=== PATIENT | female | born 1990 | race Caucasian/White ===

== ENCOUNTER 2016-12-09 18:04 | Emergency (ER) | payer MEDICARE, MEDICAID ==
[~2016-12-09] VITALS: Ht 154.9 cm; Wt 89.8 kg
[~2016-12-09 18:04] MED LIST: AMBIEN10 M1 PO; PAXIL20 M1 PO; XANAX1 M1 PO
[2016-12-09 18:14] VITALS: BP 148/92
--- NOTE | 2016-12-09 18:43 | NUR ---
Patient to bed 03.
--- NOTE | 2016-12-09 18:54 | NUR ---
PT PRESENTS TO ER FOR EVALUATION OF ABDOMINAL CRAMPING X2 DAYS. PT STATES SHE IS 7 WEEKS ;PT STATES PAIN RADIATES TO LOWER BACK;DENIES SPOTTING/VAGINAL BLEEDING/CP/SOB/COUGH/FEVER HAS HX OF DM, HTN, AND ASTHMA.PT IS AAOX4;NO ACUTE DISTRESS NOTED AT THIS TIME;HOB ELEVATED;NEEDS ATTENDED;SAFETY MEASURES INSTITUTED;MD MADE AWARE OF PT'S CONDITION.
--- NOTE | 2016-12-09 19:17 | NUR ---
Pt report given to ALIREZA NOLASCO. Transfer of care at this time.
[2016-12-09 20:34] VITALS: BP 137/84
--- NOTE | 2016-12-09 20:34 | NUR ---
Patient discharged with v/s stable. Written and verbal after care instructions given and explained. Patient alert, oriented and verbalized understanding of instructions. Ambulatory with steady gait. All questions addressed prior to discharge. ID band removed. Patient advised to follow up with PMD. Rx of TYLENOL 500MG given. Patient educated on indication of medication including possible reaction and side effects. Opportunity to ask questions provided and answered.
== END 2016-12-09 20:34 | disposition home or self-care (01) ==
LOC: MED 18:04
DX: O26.891 Other specified pregnancy related conditions, first trimester (principal); N83.202 Unspecified ovarian cyst, left side; B35.4 Tinea corporis; O99.511 Diseases of the respiratory system complicating pregnancy, first trimester; J45.909 Unspecified asthma, uncomplicated; I10 Essential (primary) hypertension; O24.911 Unspecified diabetes mellitus in pregnancy, first trimester; Z3A.01 Less than 8 weeks gestation of pregnancy

== ENCOUNTER 2016-12-10 21:25 | Emergency (ER) | payer MEDICARE, MEDICAID ==
[~2016-12-10] VITALS: Ht 154.9 cm; Wt 89.8 kg
[2016-12-10 21:47] VITALS: BP 152/90
--- NOTE | 2016-12-11 00:06 | NUR ---
TO ER BED 5
--- NOTE | 2016-12-11 00:07 | NUR ---
APATIENT PRESENTS TO ED WITH AB PAIN X 2 DAYS . PT STATES SHE WAS HERE AT [facility] YESTERDAY FOR THE SAME AB PAIN, BUT TODAY SHE IS HAVING VAGINAL BLEEDING WITH MORE PAIN . PT DENIES N/V/D; SKIN IS PINK/WARM/DRY; AAOX4 WITH EVEN AND STEADY GAIT; LUNGS CLEAR BL; HR EVEN AND REGULAR; PT DENIES ANY FEVER, CP, SOB, OR COUGH AT THIS TIME; PATIENT STATES PAIN OF 9/10 AT THIS TIME; VSS; PATIENT POSITIONED FOR COMFORT; HOB ELEVATED; BEDRAILS UP X2; BED DOWN. ER MD MADE AWARE OF PT STATUS.
--- NOTE | 2016-12-11 00:10 | NUR ---
Patient being evaluated by DR. ZHU at bedside.
[2016-12-11 02:05] VITALS: BP 145/85
--- NOTE | 2016-12-11 02:05 | NUR ---
Patient discharged with v/s stable. Written and verbal after care instructions given and explained. Patient verbalized understanding. Ambulatory with steady gait. All questions addressed prior to discharge. Advised to follow up with PMD.
== END 2016-12-11 02:05 | disposition home or self-care (01) ==
LOC: MED 21:25
DX: O20.9 Hemorrhage in early pregnancy, unspecified (principal); O16.1 Unspecified maternal hypertension, first trimester; O24.911 Unspecified diabetes mellitus in pregnancy, first trimester; O99.511 Diseases of the respiratory system complicating pregnancy, first trimester; J45.909 Unspecified asthma, uncomplicated; Z3A.01 Less than 8 weeks gestation of pregnancy

== ENCOUNTER 2019-01-24 16:42 | Emergency (ER) | payer OTHER ==
[~2019-01-24] VITALS: Ht 154.9 cm; Wt 90.7 kg
[~2019-01-24 16:42] MED LIST changes: +ALPR1TAB2 PO; -AMBIEN10 M1 PO; +PAX20 PO; -PAXIL20 M1 PO; -XANAX1 M1 PO; +ZOLP10TA1 PO
[2019-01-24 16:52] VITALS: BP 139/68
--- NOTE | 2019-01-24 17:02 | NUR ---
28 Y FEMALE BIB FAMILY C/O ABD PAIN, PAINFUL URINATION. PAIN 9/10. +N/V. DENIES CONSTIPATION OR DIARRHEA. BOWEL SOUNDS ACTIVE IN ALL 4 QUADRANTS. ABDOMEN SOFT AND ROUND. PT STATES SHE TOOK PERCOCET FOR THE PAIN WHILE IN THE LOBBY. VSS AT THIS TIME. AA0X4. BED IS DOWN, LOCKED, BED RAIL X 1, ERMD NOTIFIED. MED HX: LUPUS, DIABETES
--- NOTE | 2019-01-24 17:20 | NUR ---
DR ROSS AT BEDSIDE
[2019-01-24 17:32] LABS: APPEARANCE,URINE CLEAR (CLEAR); BILIRUBIN,URINE NEGATIVE (NEGATIVE); BLOOD, URINE TRACE-L (NEGATIVE); COLOR,URINE YELLOW (YELLOW); LEUKOCYTE ESTERASE ,URINE TRACE (NEGATIVE); NITRITE, URINE NEGATIVE (NEGATIVE); UGLUCOSE NEGATIVE (NEGATIVE)
--- NOTE | 2019-01-24 17:38 | NUR ---
LAB AT BEDSIDE
[2019-01-24 17:40] LABS: RBC,URINE 0-5 /HPF (0-5)
[2019-01-24 17:43] LABS: BASOPHILS # (AUTO) 0.1 K/uL (0.00-0.22); BASOPHILS % (AUTO) 0.9 % (0.0-2.0); EOSINOPHILS # (AUTO) 0.2 K/uL (0-0.4); EOSINOPHILS % (AUTO) 2.7 % (0.0-4.0); HEMATOCRIT 36.6 % (36-48); HEMOGLOBIN 11.6 g/dL (12.0-16.0); LYMPHOCYTES # (AUTO) 2.4 K/uL (2.5-16.5); LYMPHOCYTES % (AUTO) 28.6 % (20.5-51.1); MEAN CORPUSCULAR HEMOGLOBIN 21 pg (27-31); MEAN CORPUSCULAR HGB CONC 32 g/dL (33-37); MEAN CORPUSCULAR VOLUME 67.4 fL (80-94); MONOCYTES # (AUTO) 0.6 K/uL (0.8-1.0); MONOCYTES % (AUTO) 7.2 % (1.7-9.3); NEUTROPHILS # (AUTO) 5.2 K/uL (1.8-7.7); NEUTROPHILS % (AUTO) 60.6 % (42.2-75.2); PLATELET COUNT (AUTO) 381 K/uL (140-450); RED BLOOD CELL COUNT(AUTO) 5.42 MIL/uL (4.20-5.40); RED CELL DISTRIBUTION WIDTH 15.7 % (11.6-13.7); WHITE BLOOD COUNT (AUTO) 8.6 K/uL (4.8-10.8)
[2019-01-24 17:50] LABS: ANION GAP 9.5 (8-16); CARBON DIOXIDE 28.2 mmol/L (21-32); CREATININE 0.7 mg/dL (0.6-1.3); POTASSIUM 3.7 mmol/L (3.5-5.1)
[2019-01-24 17:57] LABS: TOTAL BILIRUBIN 0.2 mg/dL (0.0-1.0)
--- NOTE | 2019-01-24 18:12 | NUR ---
US AT BEDSIDE
[2019-01-24] MEDS ORDERED: ONDANSETRON 4 MG ODT PO ONE (18:35)
--- NOTE | 2019-01-24 18:49 | NUR ---
AA0X4, VSS AT THIS TIME. BOYFRIEND BEDSIDE. PT SITTING IN BED.
--- NOTE | 2019-01-24 18:54 | NUR ---
PT BEING TAKEN TO CT
--- NOTE | 2019-01-24 19:04 | NUR ---
PT RETURNED FROM CT
[2019-01-24] MEDS ORDERED: cefTRIAXone 1,000 MG VIAL ONE (19:28)
[2019-01-24 20:17] VITALS: BP 132/87
--- NOTE | 2019-01-24 20:17 | NUR ---
Patient discharged with v/s stable. Written and verbal after care instructions given and explained. Patient alert, oriented and verbalized understanding of instructions. Ambulatory with steady gait. All questions addressed prior to discharge. ID band removed. Patient advised to follow up with PMD. Rx of ZOFRAN, CEPHALEXIN given. Patient educated on indication of medication including possible reaction and side effects. Opportunity to ask questions provided and answered.
== END 2019-01-24 20:17 | disposition home or self-care (01) ==
LOC: MED 16:42
DX: N39.0 Urinary tract infection, site not specified (principal); M32.9 Systemic lupus erythematosus, unspecified; J45.909 Unspecified asthma, uncomplicated; E11.9 Type 2 diabetes mellitus without complications; Z90.49 Acquired absence of other specified parts of digestive tract; Z88.5 Allergy status to narcotic agent; Z79.899 Other long term (current) drug therapy
CPT/HCPCS: 36415; 74176; 76705; 76856; 80053; 81001; 81025; 82948; 85025; 87086; 87186; 93976; 96365; 99284; J0696; Q0092; Q0162

== ENCOUNTER 2019-02-24 22:42 | Emergency (ER) | payer OTHER ==
[~2019-02-24] VITALS: Ht 154.9 cm; Wt 89.8 kg
[2019-02-24 22:46] VITALS: BP 138/99
--- NOTE | 2019-02-24 22:52 | NUR ---
PT WAS UNABLE TO USE THE RESTROOM, PT AMBULATED BACK TO [facility]
--- NOTE | 2019-02-25 00:56 | NUR ---
PT WAS CALLED IN LOBBY, NO ANSWER, LWBS
--- NOTE | 2019-02-25 01:06 | NUR ---
CALLED PT FOR THE SECOND TIME IN LOBBY, NO RESPONSE. LWBS
--- NOTE | 2019-02-25 01:06 | NUR ---
PATIENT LEFT WITHOUT BEING SEEN BY DR. ASHTON. NO FURTHER CARE PROVIDED FOR PATIENT.
== END 2019-02-25 01:06 | disposition left against medical advice (07) ==
LOC: MED 22:42
DX: R42 Dizziness and giddiness (principal); R06.02 Shortness of breath; Z53.21 Procedure and treatment not carried out due to patient leaving prior to being seen by health care provider

== ENCOUNTER 2019-03-20 18:18 | Emergency (ER) | payer OTHER ==
[~2019-03-20] VITALS: Ht 154.9 cm; Wt 88.5 kg
[2019-03-20 18:50] VITALS: BP 146/90
[2019-03-20 18:51] VITALS: BP 146/90
--- NOTE | 2019-03-20 19:32 | NUR ---
PATIENT AMBULATED TO ER BED 4.
--- NOTE | 2019-03-20 19:39 | NUR ---
PT AMB TO RESTROOM FOR URINE SAMPLE WITH STEADY GAIT
--- NOTE | 2019-03-20 19:39 | NUR ---
28 Y FEMALE BIB FAMILY C/O HEADACHE AND DOUG EYE PAIN SINCE YESTERDAY. GENERALIZED PAIN THROUGHOUT BODY 06/13. NEURO INTACT: PUPILS VERA, EQUAL ARM STRATEGY DIRECTOR, FACIAL SYMMETRY, AA0X4, GCS 15. VSS AT THIS TIME. BED IS DOWN, LOCKED, BED RAIL X 1, ERMD TO SEE PT. HX OF LUPUS, DM, PANIC DISORDER.
--- NOTE | 2019-03-20 19:45 | NUR ---
LIGHTS TURNED OFF FOR PT COMFORT, PT LAYING IN BED
--- NOTE | 2019-03-20 19:50 | NUR ---
DR ROMERO AT BEDSIDE
[2019-03-20] MEDS ORDERED: ALPRAZolam 0.5 MG TAB PO ONE (19:55)
[2019-03-20] MEDS ORDERED: ONDANSETRON 4 MG ODT PO ONE (19:55)
[2019-03-20] MEDS ORDERED: SUMAtriptan 6 MG/0.5 ML VIAL SUBQ ONE (20:35)
== END 2019-03-20 20:54 | disposition left against medical advice (07) ==
LOC: MED 18:18
DX: F41.9 Anxiety disorder, unspecified (principal); R51 Headache; J45.909 Unspecified asthma, uncomplicated; E11.9 Type 2 diabetes mellitus without complications; M32.9 Systemic lupus erythematosus, unspecified; Z79.899 Other long term (current) drug therapy; Z88.6 Allergy status to analgesic agent; Z88.5 Allergy status to narcotic agent
CPT/HCPCS: 99283; Q0162; J3030

== ENCOUNTER 2019-09-13 17:02 | Emergency (ER) | payer OTHER ==
[~2019-09-13] VITALS: Ht 154.9 cm; Wt 86.2 kg
[2019-09-13 17:04] VITALS: BP 155/91
--- NOTE | 2019-09-13 17:30 | NUR ---
PT BIB SELF TO THE ED WITH THE CHIEF C/O NUMBNESS ON LEFT SIDE OF FACE SINCE THIS AFTERNOON. DENIES FALL. DENIES INJURIES ON FACE. HEADACHE 8/10. TOOK PERCOCET AN HOUR AGO. PT AOX4, SYMMETRICAL SMILE. NO FACIAL DROOPING, CLEAR SPEECH. HAS BILATERAL STRENGHTH ON HER EXTREMITY. PT HAS STABLE GIAT. PT STATES OF TAKING THCA PILLS ( WEEDS PILLS) FOR HER LUPUS DAILY, DO NOT MAKE HER DROWSY. PT STATES OG HAVING CP AT THE LFT SIDE , PAIN 8/10 , NON- SPECIFIC PAIN. RR EVEN AND NON-LABORED. DENIES ANY SOB, N, V AT THIS TIME. ER MD TO SEE THE PT. MADE HER COMFORTABLE. WILL CONTINUE TO [facility] PT. PMH: DM, LUPUS, ANXIETY RX: PERCOCET, METFORMIN, GLIPIZE, AMBIAN, STEROIDS, XANAX ALLERGIC TO MORPHINE
--- NOTE | 2019-09-13 17:46 | NUR ---
Dr. Douglass evaluating pt at bedside.
[2019-09-13 18:10] VITALS: BP 114/74
== END 2019-09-13 18:10 | disposition home or self-care (01) ==
LOC: MED 17:02
DX: R20.2 Paresthesia of skin (principal); M32.9 Systemic lupus erythematosus, unspecified; E11.9 Type 2 diabetes mellitus without complications; R03.0 Elevated blood-pressure reading, without diagnosis of hypertension; F41.9 Anxiety disorder, unspecified; J45.909 Unspecified asthma, uncomplicated; Z90.49 Acquired absence of other specified parts of digestive tract; Z98.890 Other specified postprocedural states; Z79.899 Other long term (current) drug therapy; Z88.5 Allergy status to narcotic agent; Z88.8 Allergy status to other drugs, medicaments and biological substances
CPT/HCPCS: 99283

== ENCOUNTER 2021-02-20 15:53 | Emergency (ER) | payer OTHER ==
[~2021-02-20] VITALS: Ht 154.9 cm; Wt 88.5 kg
--- NOTE | 2021-02-20 16:02 | NUR ---
Gee tejeda in [facility] - 02/20/21 at 1604 by MED1 Patient being evaluated by ROSEMARIE CAMPBELL at bedside.
--- NOTE | 2021-02-20 16:03 | NUR ---
Gee tejeda in [facility] - 02/20/21 at 1604 by MED1 NO NEED NURSING TREATMENT.
[2021-02-20 16:10] VITALS: BP 171/100
--- NOTE | 2021-02-20 16:14 | NUR ---
PT TAKEN TO ER BED 5.
--- NOTE | 2021-02-20 16:21 | NUR ---
30 Y/O FEMALE C/O +N/V, MID CHEST PAIN 8/ DESCRIBES PRESSURE NON-RADIATING X 3 DAYS WORSENED TODAY. PT STATES FLARE UPS FOR LUPUS CAUSE SIILAR SYMPTOMS, UNABLE TO TOLERATE TODAY. PT BLOOD SUGAR 196 AT THIS TIME. PT DENIES FEVER/CHILLS. PMH: DM, LUPUS, FIBROMYALGIA ALLERGIES: IBUPROFEN, MORPHINE
--- NOTE | 2021-02-20 16:31 | NUR ---
Dr. Manley at pt bedside for further evaluation.
[2021-02-20] MEDS ORDERED: ONDANSETRON 4 MG/2 ML VIAL IVP ONE (16:35)
[2021-02-20] MEDS ORDERED: NACL 0.9% 1,000 ML IV ONE (16:35)
--- NOTE | 2021-02-20 16:47 | NUR ---
PT REFUSED IV ACCESS, MADE AWARE. ORDERED ZOFRAN PO AND PO CHALLENGE.
[2021-02-20] MEDS ORDERED: ONDANSETRON 4 MG ODT PO ONE (16:55)
[2021-02-20] MEDS ORDERED: ONDA8TAB87 PO (17:16)
[2021-02-20 17:19] VITALS: BP 170/89
== END 2021-02-20 17:20 | disposition home or self-care (01) ==
LOC: MED 15:53
DX: R07.89 Other chest pain (principal); R11.2 Nausea with vomiting, unspecified; R00.2 Palpitations; J45.909 Unspecified asthma, uncomplicated; E11.9 Type 2 diabetes mellitus without complications; K21.9 Gastro-esophageal reflux disease without esophagitis; Z88.5 Allergy status to narcotic agent; Z88.6 Allergy status to analgesic agent; Z79.899 Other long term (current) drug therapy; Z90.49 Acquired absence of other specified parts of digestive tract; Z98.890 Other specified postprocedural states
CPT/HCPCS: 93005; 99283; J2405; Q0162